=== PATIENT | female | born 1970 | race Caucasian/White ===

== ENCOUNTER → 2019-02-08 | Outpatient (CLI) | payer MEDICAID | LOC: M.LAB 05:02 | DX: E87.6 Hypokalemia (principal) ==

== ENCOUNTER → 2021-06-02 | Outpatient (CLI) | payer MEDICAID | LOC: M.CT 04-13 11:00 | PROVIDERS: ATTEND Internal Medicine Gastroenterology | DX: K50.90 Crohn's disease, unspecified, without complications (principal) ==

== ENCOUNTER → 2021-06-15 | Outpatient (CLI) | payer MEDICAID | LOC: M.LAB 05:45 | PROVIDERS: ATTEND Anesthesiology | DX: E87.6 Hypokalemia (principal) ==